=== PATIENT | male | born 1965 | race African-American/Black ===

== ENCOUNTER 2017-12-19 15:39 | Emergency (ER) | payer SELFPAY ==
[2017-12-19 16:31] LABS: Absolute Lymphocytes (CBC) 1.6 K/uL (0.7-4.9); Absolute Neutrophil 5.6 K/uL (1.8-8.0); Hematocrit 43.7 % (39.6-49.0); Lymphocytes % 18.7 % (15.3-44.8); MCH 27.4 pg (27.0-35.0); MCV 81.5 fL (80-100); MPV 9.5 fL (7.6-11.3); Monocytes % 12.2 % (3.3-12.3); RBC Red Blood Cell Count 5.36 M/uL (4.33-5.43)
[2017-12-19 17:01] LABS: Potassium 2.8 mEq/L (3.6-5.0)
[2017-12-19] MEDS ORDERED: POTASSIUM 25 MEQ EFFERV TAB ONE (17:19)
--- NOTE | 2017-12-19 17:27 | ER ---
Nurse's Notes [facility] Name: Lencho Menon Age: 52 yrs Sex: Male : 1965 Arrival Date: 12/19/2017 Time: 15:42 Bed 14 Private MD: Out, [facility] Diagnosis: Hypokalemia Presentation: 12/19 15:43 Presenting complaint: Patient states: i had blood work done yesterday and my potassium tw2 is low [facility] Transition of care: patient was not received from another setting of care. Onset of symptoms was December 19, 2017. Risk Assessment: Do you want to hurt yourself or someone else? Patient reports no desire to harm self or others. Initial Sepsis Screen: Does the patient meet any 2 criteria? No. Patient's initial sepsis screen is negative. Does the patient have a suspected source of infection? No. Patient's initial sepsis screen is negative. Care prior to arrival: None. 15:43 Method Of Arrival: Ambulatory tw2 15:43 Acuity: BENY 3 tw2 Historical: - Allergies: 15:45 No Known Drug Allergies; tw2 - Home Meds: 15:45 potassium chloride 20 mEq Oral TbER 1 tab once daily [Active]; hydralazine 25 mg Oral tw2 tab 1 tab 2 times per day [Active]; labetalol 200 mg Oral tab 1 tab three times a day [Active]; nifedipine 90 mg Oral TbER 1 tab once daily [Active]; triamterene-hydrochlorothiazid 37.5-25 mg Oral tab 1 tab once daily [Active]; - PMHx: 15:45 Hypertension; tw2 - PSHx: 15:45 None; tw2 - Immunization history:: Adult Immunizations up to date. - Social history:: Smoking status: Patient/guardian denies using tobacco. - Ebola Screening: : Patient denies travel to an Ebola-affected area in the 21 days before illness onset. Screenin:38 Abuse screen: Denies threats or abuse. Denies injuries from another. Nutritional ch screening: No deficits noted. Tuberculosis screening: No symptoms or risk factors identified. Fall Risk None identified. Assessment: 16:38 General: Appears in no apparent distress. comfortable, Behavior is calm, cooperative, ch appropriate for age. Pain: Denies pain. Neuro: No deficits noted. Cardiovascular: Denies chest pain, fatigue, lightheadedness, palpitations, shortness of breath, Capillary refill < 3 seconds in bilateral fingers toes Clubbing of nail beds is absent. Respiratory: Airway is patent Respiratory effort is even, unlabored, Breath sounds are clear bilaterally. GI: No signs and/or symptoms were reported involving the gastrointestinal system. : No signs and/or symptoms were reported regarding the genitourinary system. Derm: Skin is normal, black. Musculoskeletal: No signs and/or symptoms reported regarding the musculoskeletal system. Circulation, motion, and sensation intact. 17:45 Reassessment: Patient appears in no apparent distress at this time. Patient and/or ch family updated on plan of care and expected duration. Pain level reassessed. Patient is alert, oriented x 3, equal unlabored respirations, skin warm/dry/pink. i verify with erp that pt is to be discharged home, no further potassium to be given, no repeat labs to be drawn. erp states yes, discharge pt. Vital Signs: 15:45 BP 181 / 94; Pulse 76; Resp 17; Temp 98.2(O); Pulse Ox 98% on R/A; Weight 129.27 kg tw2 (R); Height 5 ft. 11 in. (180.34 cm); Pain 0/10; 16:38 BP 170 / 80; Pulse 65; Resp 18; Temp 98.3; Pulse Ox 99% on R/A; Pain 0/10; ch 17:00 BP 146 / 75; Pulse 68; Pulse Ox 99% on R/A; ch 17:45 BP 135 / 86; Pulse 71; Resp 16; Temp 98.2; Pulse Ox 99% on R/A; Pain 0/10; ch 15:45 Body Mass Index 39.75 (129.27 kg, 180.34 cm) tw2 ED Course: 15:42 Patient arrived in ED. mr 15:42 Out, of Town is Private Physician. mr 15:44 Triage completed. tw2 15:44 Arm band placed on. tw2 15:52 Neno Fall MD is Attending Physician. gs 16:38 Rossi Alonso, STEPHANE is Primary Nurse. ch 16:38 Patient has correct armband on for positive identification. Placed in gown. Bed in low ch position. Call light in reach. Side rails up X 1. Pulse ox on. NIBP on. 16:38 No provider procedures requiring assistance completed. Inserted saline lock: 18 gauge ch in left antecubital area, using aseptic technique. Blood collected. 18:00 IV discontinued, intact, bleeding controlled, No redness/swelling at site. Pressure ch dressing applied. Administered Medications: 17:23 Drug: Potassium Effervescent Tablet 50 mEq Route: PO; 18:00 Follow up: Response: No adverse reaction Outcome: 17:25 Discharge ordered by . 18:00 Discharged to home ambulatory. 18:00 Condition: stable 18:00 Discharge instructions given to patient, family, Instructed on discharge instructions, follow up and referral plans. medication usage, Demonstrated understanding of instructions, follow-up care, medications. 18:11 Patient left the ED. Signatures: Rossi Alonso, Carline Rogers RN, ch, Tara, RN RN tw2 Neno Fall MD MD
--- NOTE | 2017-12-19 17:27 | EDPHYS ---
Physician Documentation [facility] Name: Lencho Menon Age: 52 yrs Sex: Male : 1965 Arrival Date: 12/19/2017 Time: 15:42 Bed 14 Private MD: Out, [facility] ED Physician Neno Fall HPI: 12/19 17:16 This 52 yrs old Black Male presents to ER via Ambulatory with complaints of Abnormal gs Lab Results. 17:16 HAS LOW POTASSIUM SENT BY PCP, ASYMPTOMATIC. Onset: The symptoms/episode began/occurred gs 5 day(s) ago. Severity of symptoms: At their worst the symptoms were moderate in the emergency department the symptoms are unchanged. It is unknown whether or not the patient has had similar symptoms in the past. Historical: - Allergies: 15:45 No Known Drug Allergies; tw2 - Home Meds: 15:45 potassium chloride 20 mEq Oral TbER 1 tab once daily [Active]; hydralazine 25 mg Oral tw2 tab 1 tab 2 times per day [Active]; labetalol 200 mg Oral tab 1 tab three times a day [Active]; nifedipine 90 mg Oral TbER 1 tab once daily [Active]; triamterene-hydrochlorothiazid 37.5-25 mg Oral tab 1 tab once daily [Active]; - PMHx: 15:45 Hypertension; tw2 - PSHx: 15:45 None; tw2 - Immunization history:: Adult Immunizations up to date. - Social history:: Smoking status: Patient/guardian denies using tobacco. - Ebola Screening: : Patient denies travel to an Ebola-affected area in the 21 days before illness onset. ROS: 17:16 All other systems are negative. gs Exam: 17:16 Head/Face: Normocephalic, atraumatic. Eyes: Pupils equal round and reactive to light, gs extra-ocular motions intact. Lids and lashes normal. Conjunctiva and sclera are non-icteric and not injected. Cornea within normal limits. Periorbital areas with no swelling, redness, or edema. ENT: Nares patent. No nasal discharge, no septal abnormalities noted. Tympanic membranes are normal and external auditory canals are clear. Oropharynx with no redness, swelling, or masses, exudates, or evidence of obstruction, uvula midline. Mucous membranes moist. Neck: Trachea midline, no thyromegaly or masses palpated, and no cervical lymphadenopathy. Supple, full range of motion without nuchal rigidity, or vertebral point tenderness. No Meningismus. Chest/axilla: Normal chest wall appearance and motion. Nontender with no deformity. No lesions are appreciated. Cardiovascular: Regular rate and rhythm with a normal S1 and S2. No gallops, murmurs, or rubs. Normal PMI, no JVD. No pulse deficits. Respiratory: Lungs have equal breath sounds bilaterally, clear to auscultation and percussion. No rales, rhonchi or wheezes noted. No increased work of breathing, no retractions or nasal flaring. Abdomen/GI: Soft, non-tender, with normal bowel sounds. No distension or tympany. No guarding or rebound. No evidence of tenderness throughout. Back: No spinal tenderness. No costovertebral tenderness. Full range of motion. Skin: Warm, dry with normal turgor. Normal color with no rashes, no lesions, and no evidence of cellulitis. MS/ Extremity: Pulses equal, no cyanosis. Neurovascular intact. Full, normal range of motion. Neuro: Awake and alert, GCS 15, oriented to person, place, time, and situation. Cranial nerves II-XII grossly intact. Motor strength 5/5 in all extremities. Sensory grossly intact. Cerebellar exam normal. Normal gait. 17:16 Constitutional: The patient appears alert, awake. Vital Signs: 15:45 BP 181 / 94; Pulse 76; Resp 17; Temp 98.2(O); Pulse Ox 98% on R/A; Weight 129.27 kg tw2 (R); Height 5 ft. 11 in. (180.34 cm); Pain 0/10; 16:38 BP 170 / 80; Pulse 65; Resp 18; Temp 98.3; Pulse Ox 99% on R/A; Pain 0/10; ch 17:00 BP 146 / 75; Pulse 68; Pulse Ox 99% on R/A; ch 17:45 BP 135 / 86; Pulse 71; Resp 16; Temp 98.2; Pulse Ox 99% on R/A; Pain 0/10; ch 15:45 Body Mass Index 39.75 (129.27 kg, 180.34 cm) tw2 MDM: 16:30 Patient medically screened. 17:16 Data reviewed: vital signs, nurses notes. 12/19 15:52 Order name: CBC with Diff; Complete Time: 17:16 12/19 15:52 Order name: Basic Metabolic Panel; Complete Time: 17:16 12/19 16:32 Order name: Magnesium; Complete Time: 17:16 Administered Medications: 17:23 Drug: Potassium Effervescent Tablet 50 mEq Route: PO; 18:00 Follow up: Response: No adverse reaction Disposition: 12/19/17 17:25 Discharged to Home. Impression: Hypokalemia. - Condition is Stable. - Discharge Instructions: Hypokalemia. - Prescriptions for Potassium Chloride 20 meq Oral Packet - take 2 packets by ORAL route 2 times per day for 3 days 1 packet in 6 (six) ounces of water or juice; Take after meal; 12 packet. - Medication Reconciliation Form, Thank You Letter, Antibiotic Education, Prescription Opioid Use form. - Follow up: Private Physician; When: 2 - 3 days; Reason: Re-evaluation by your physician. Signatures: Dispatcher [employer] Rossi Chaudhry RN RN Denae Patterson RN RN 2 Neno Fall MD MD Corrections: (The following items were deleted from the chart) 18:11 17:25 12/19/2017 17:25 Discharged to Home. Impression: Hypokalemia. Condition is ch Stable. Forms are Medication Reconciliation Form, Thank You Letter, Antibiotic Education, Prescription Opioid Use. Follow up: Private Physician; When: 2 - 3 days; Reason: Re-evaluation by your physician.
== END 2017-12-19 18:11 | disposition home or self-care (01) ==
LOC: ER 15:39
DX: E87.6 Hypokalemia (principal); I10 Essential (primary) hypertension
CPT/HCPCS: 36415; 80048; 83735; 85025; 99284

== ENCOUNTER 2018-02-26 14:19 | Emergency (ER) | payer OTHER, SELFPAY ==
[2018-02-26] MEDS ORDERED: HYDROCODONE/APAP 7.5/325 MG TAB ONE (15:52)
[2018-02-26] MEDS ORDERED: IBUPROFEN 400 MG TAB ONE (15:56)
--- NOTE | 2018-02-26 16:41 | EDPHYS ---
Physician Documentation [facility] Name: Lencho Menon Age: 52 yrs Sex: Male : 1965 Arrival Date: 02/26/2018 Time: 14:21 Bed 28 Private MD: ED Physician Akira Bender HPI: 02/26 15:50 This 52 yrs old Black Male presents to ER via Ambulatory with complaints of Foot Pain. cp 15:50 The patient presents with pain, that is acute, swelling, tenderness. The complaints cp affect the metatarsalphalangeal joint left great toe. Context: resulted from an unknown cause, the patient can fully bear weight, the patient is able to ambulate, with moderate difficulty. Onset: The symptoms/episode began/occurred 2 day(s) ago. Associated signs and symptoms: Pertinent positives: swelling, tenderness, Pertinent negatives calf tenderness, fever, warmth, injury. Treatment prior to arrival includes: no previous treatment. Historical: - Allergies: 14:25 No Known Drug Allergies; hj - Home Meds: 14:25 hydralazine 25 mg Oral tab 1 tab 2 times per day [Active]; labetalol 200 mg Oral tab 1 hj tab three times a day [Active]; nifedipine 90 mg Oral TbER 1 tab once daily [Active]; potassium chloride 20 mEq Oral TbER 1 tab once daily [Active]; triamterene-hydrochlorothiazid 37.5-25 mg Oral tab 1 tab once daily [Active]; - PMHx: 14:25 Hypertension; hj - PSHx: 14:25 None; hj - Immunization history:: Adult Immunizations up to date. - Social history:: Smoking status: Patient/guardian denies using tobacco, Patient uses alcohol, occasionally. - Ebola Screening: : Patient negative for fever greater than or equal to 101.5 degrees Fahrenheit, and additional compatible Ebola Virus Disease symptoms Patient denies exposure to infectious person Patient denies travel to an Ebola-affected area in the 21 days before illness onset. ROS: 16:00 Constitutional: Negative for body aches, chills, fever, poor PO intake. cp 16:00 Eyes: Negative for injury, pain, redness, and discharge. cp 16:00 ENT: Negative for drainage from ear(s), ear pain, sore throat, difficulty swallowing, difficulty handling secretions. 16:00 Cardiovascular: Negative for chest pain, edema, palpitations. 16:00 Respiratory: Negative for cough, shortness of breath, wheezing. 16:00 Abdomen/GI: Negative for abdominal pain, nausea, vomiting, and diarrhea. 16:00 MS/extremity: Positive for pain, swelling, tenderness, of the left metatarsalphalangeal joint of left great toe, Negative for injury or acute deformity. 16:00 Skin: Negative for abscesses, cellulitis. 16:00 All other systems are negative. Exam: 16:05 Constitutional: The patient appears in no acute distress, alert, non-toxic, well cp developed, well nourished, uncomfortable. 16:05 Head/Face: Normocephalic, atraumatic. cp 16:05 Eyes: Periorbital structures: appear normal, Conjunctiva: normal, no exudate, no cp injection, Lids and lashes: appear normal, bilaterally. 16:05 ENT: External ear(s): are unremarkable, Nose: is normal, Mouth: Lips: moist, Oral mucosa: moist, Posterior pharynx: is normal, airway is patent, no erythema, no exudate. 16:05 Chest/axilla: Inspection: normal, Palpation: is normal, no crepitus, no tenderness. 16:05 Cardiovascular: Rate: normal, Rhythm: regular. 16:05 Respiratory: the patient does not display signs of respiratory distress, Respirations: cp normal, no use of accessory muscles, no retractions, no splinting, no tachypnea. 16:05 Abdomen/GI: Exam negative for discomfort, distension, guarding, Inspection: abdomen appears normal. 16:05 Musculoskeletal/extremity: Extremities: grossly normal except: noted in the metacarpal phalangeal joint of left great toe: pain, swelling, tenderness, There is no evidence of deformity, injury, Pulses: noted to be 2+ in the left dorsalis pedis artery, Calf tenderness, is absent, Sensation intact. 16:05 Skin: cellulitis, is not appreciated, no rash present. Vital Signs: 14:26 BP 192 / 86; Pulse 74; Resp 18; Temp 97.9(O); Pulse Ox 100% on R/A; Weight 127.01 kg; hj Height 5 ft. 11 in. (180.34 cm); Pain 9/10; 16:16 BP 168 / 94; Pulse 89; Resp 18; Pulse Ox 98% on R/A; Pain 5/10; mg2 14:26 Body Mass Index 39.05 (127.01 kg, 180.34 cm) MDM: 15:18 Patient medically screened. cp 16:00 Differential diagnosis: closed fracture, cellulitis, abscess, gout. cp 16:40 Data reviewed: vital signs, nurses notes, radiologic studies, plain films, and as a cp result, I will discharge patient. 16:40 Counseling: I had a detailed discussion with the patient and/or guardian regarding: the cp historical points, exam findings, and any diagnostic results supporting the discharge/admit diagnosis, radiology results, the need for outpatient follow up, a family practitioner. Response to treatment: the patient's symptoms have mildly improved after treatment. 02/26 15:45 Order name: XRAY Foot LEFT 3 View cp Administered Medications: 15:53 Not Given (Patient Refused): Hydrocodone-Acetaminophen (7.5 mg-325 mg) 1 tabs PO once mg2 15:54 Drug: Motrin 800 mg Route: PO; mg2 16:56 Follow up: Response: No adverse reaction; Marked relief of symptoms mg2 Disposition: 02/27 07:25 Co-signature as Attending Physician, Akira Bender MD I agree with the assessment and [facility] plan of care. Disposition: 02/26/18 16:40 Discharged to Home. Impression: Pain in left toe(s) - Left Big Toe. - Condition is Stable. - Discharge Instructions: Gout. - Prescriptions for Colchicine- Probenecid 0.5-500 mg Oral Tablet - take 1 tablet by ORAL route every 1 hour up to 3 hours; 3 tablet. Tramadol 50 mg Oral Tablet - take 1 tablet by ORAL route every 8 hours as needed; 15 tablet. - Medication Reconciliation Form, Thank You Letter, Antibiotic Education, Prescription Opioid Use form. - Follow up: Private Physician; When: 2 - 3 days; Reason: Recheck today's complaints. - Problem is new. - Symptoms are unchanged. Signatures: Dispatcher [employer] Akira Torres MD MD cha Joaquin, Henry RN RN Akira Bustillos PA PA cp Gardose, Michele RN RN mg2 Corrections: (The following items were deleted from the chart) 02/26 16:24 02/25 16:05 Constitutional: The patient appears in no acute distress, alert, awake, cp non-toxic, well developed, well nourished, uncomfortable, cp 02/26 16:24 02/25 16:05 Head/Face: Normocephalic, atraumatic. cp cp 02/26 16:58 16:40 02/26/2018 16:40 Discharged to Home. Impression: Pain in left toe(s) - Left Big mg2 Toe. Condition is Stable. Forms are Medication Reconciliation Form, Thank You Letter, Antibiotic Education, Prescription Opioid Use. Follow up: Private Physician; When: 2 - 3 days; Reason: Recheck today's complaints. Problem is new. Symptoms are unchanged. cp
--- NOTE | 2018-02-26 16:41 | ER ---
Nurse's Notes [facility] Name: Lencho Menon Age: 52 yrs Sex: Male : 1965 Arrival Date: 02/26/2018 Time: 14:21 Bed 28 Private MD: Diagnosis: Pain in left toe(s)-Left Big Toe Presentation: 02/26 14:23 Presenting complaint: Patient states: my L toe started hurting started yesterday, i hj think i have gout; denies trauma to the area;. Transition of care: patient was not received from another setting of care. Onset of symptoms was February 26, 2018. Risk Assessment: Do you want to hurt yourself or someone else? Patient reports no desire to harm self or others. Initial Sepsis Screen: Does the patient meet any 2 criteria? No. Patient's initial sepsis screen is negative. Does the patient have a suspected source of infection? No. Patient's initial sepsis screen is negative. Care prior to arrival: None. 14:23 Method Of Arrival: Ambulatory 14:23 Acuity: BENY 4 hj 14:23 Acuity: BENY 4 hj Triage Assessment: 14:26 General: Appears in no apparent distress. uncomfortable, Behavior is calm, cooperative, hj appropriate for age. Pain: Complains of pain in left first toe. Historical: - Allergies: 14:25 No Known Drug Allergies; hj - Home Meds: 14:25 hydralazine 25 mg Oral tab 1 tab 2 times per day [Active]; labetalol 200 mg Oral tab 1 hj tab three times a day [Active]; nifedipine 90 mg Oral TbER 1 tab once daily [Active]; potassium chloride 20 mEq Oral TbER 1 tab once daily [Active]; triamterene-hydrochlorothiazid 37.5-25 mg Oral tab 1 tab once daily [Active]; - PMHx: 14:25 Hypertension; hj - PSHx: 14:25 None; hj - Immunization history:: Adult Immunizations up to date. - Social history:: Smoking status: Patient/guardian denies using tobacco, Patient uses alcohol, occasionally. - Ebola Screening: : Patient negative for fever greater than or equal to 101.5 degrees Fahrenheit, and additional compatible Ebola Virus Disease symptoms Patient denies exposure to infectious person Patient denies travel to an Ebola-affected area in the 21 days before illness onset. Screenin:26 Abuse screen: Denies threats or abuse. Denies injuries from another. Nutritional hj screening: No deficits noted. Tuberculosis screening: No symptoms or risk factors identified. Fall Risk None identified. Assessment: 15:45 General: Appears in no apparent distress. comfortable, Behavior is calm, cooperative. mg2 Pain: Complains of pain in left foot and left first toe Pain does not radiate. Pain currently is 8 out of 10 on a pain scale. Quality of pain is described as aching, Pain began 2-3 days ago. Is intermittent, Alleviated by rest, Aggravated by repositioning, touch. Neuro: Level of Consciousness is awake, alert, obeys commands, Oriented to person, place, time, situation. Cardiovascular: Capillary refill < 3 seconds Patient's skin is warm and dry. Respiratory: Airway is patent Respiratory effort is even, unlabored, Respiratory pattern is regular, symmetrical. GI: No signs and/or symptoms were reported involving the gastrointestinal system. : No signs and/or symptoms were reported regarding the genitourinary system. EENT: No signs and/or symptoms were reported regarding the EENT system. Derm: Skin is intact, Skin is normal. Musculoskeletal: Circulation, motion, and sensation intact. Swelling present in left foot and left first toe. Vital Signs: 14:26 BP 192 / 86; Pulse 74; Resp 18; Temp 97.9(O); Pulse Ox 100% on R/A; Weight 127.01 kg; hj Height 5 ft. 11 in. (180.34 cm); Pain 9/10; 16:16 BP 168 / 94; Pulse 89; Resp 18; Pulse Ox 98% on R/A; Pain 5/10; mg2 14:26 Body Mass Index 39.05 (127.01 kg, 180.34 cm) ED Course: 14:21 Patient arrived in ED. rg4 14:25 Triage completed. 14:26 Arm band placed on left wrist. hj 14:26 Patient has correct armband on for positive identification. Bed in low position. Call light in reach. Side rails up X 1. 15:18 Akira Bustillos PA is PHCP. cp 15:18 Akira Bender MD is Attending Physician. cp 15:41 Mert Monson RN is Primary Nurse. mg2 16:29 X-ray completed. Portable x-ray completed in exam room. Patient tolerated procedure bb2 well. 16:31 XRAY Foot LEFT 3 View In Process Unspecified. EDMS 16:57 No provider procedures requiring assistance completed. Patient did not have IV access mg2 during this emergency room visit. Administered Medications: 15:53 Not Given (Patient Refused): Hydrocodone-Acetaminophen (7.5 mg-325 mg) 1 tabs PO once mg2 15:54 Drug: Motrin 800 mg Route: PO; mg2 16:56 Follow up: Response: No adverse reaction; Marked relief of symptoms mg2 Outcome: 16:40 Discharge ordered by MD. allan 16:57 Discharged to home ambulatory, with family. mg2 16:57 Condition: good 16:57 Discharge instructions given to patient, family, Instructed on discharge instructions, follow up and referral plans. medication usage, Demonstrated understanding of instructions, follow-up care, medications, Prescriptions given X 2. 16:58 Patient left the ED. mg2 Signatures: Dispatcher [employer] EDMS Rafael Marquez RN RN hj Akira Bustillos PA PA cp Garcia, Rubi rg4 Marge Serrano bb2 Mert Monson RN RN mg2 Corrections: (The following items were deleted from the chart) 14:28 14:26 Pulse 74bpm; Resp 18bpm; Pulse Ox 100% RA; Temp 97.9F Oral; 127.01 kg; Height 5 hj ft. 11 in.; BMI: 39.0; Pain 9/10; hj
--- NOTE | 2018-02-26 17:30 | RAD REPORT ---
EXAM DESCRIPTION: RAD - Foot Left 3 View - 02/26/2018 4:33 pm CLINICAL HISTORY: Pain left first toe COMPARISON: None. FINDINGS: No fracture, dislocation or periosteal reaction. No acute or destructive bony process. Th e first IP joint space in the first MTP joint space are normal. No soft tissue calcifications. Remainder the foot shows no acute finding. IMPRESSION: No abnormality to explain first toe pain.
== END 2018-02-26 16:58 | disposition home or self-care (01) ==
LOC: ER 14:19
DX: M79.675 Pain in left toe(s) (principal); I10 Essential (primary) hypertension
CPT/HCPCS: 99283

== ENCOUNTER 2022-03-13 20:41 | Emergency (ER) | payer BC, SELFPAY ==
--- OUTSIDE RECORDS SUMMARY | 2022-03-13 20:44 | XMS REPORT | Continuity of Care Document ---
:1965 Author Organization [facility] t Address [address] [place] [id number] Care Team Providers Name Role Phone BRAYD Attending Clinician Unavailable BRADY Admitting Clinician Unavailable Problems This patient has no known problems. Allergies, Adverse Reactions, Alerts This patient has no known allergies or adverse reactions. Medications This patient has no known medications. Procedures This patient has no known procedures. Encounters Start End Encounter Admission Attending Care Care Encounter Source Date/Time Date/Time Type Type Clinicians Facility Department ID 2022-02-08 2022-02-08 Outpatient FISH [facility] [address] 11:29:00 11:29:00 _ANN 07 [facility] h Program Results Test Description Test Time Test Comments Results Result Comments Source Comprehensive Metabolic Panel 2019-04-05 22:42:14 Test Item Value Reference Range Interpretation Comme nts Sodium Level (test code = Sodium Level) 141.0 mmol/L 135.0-145.0 Potassium Level (test code = Potassium Level) 3.6 mmol/L 3.5-5.1 Chloride Level (test code = Chloride Level) 102 mmol/L 98-105 CO2 (test code = CO2) 28 mmol/L 22-29 Anion Gap (test code = Anion Gap) 11 mmol/L 7-16 BUN (test code = BUN) 23.50 mg/dL 6.00-20.00 H Creatinine Level (test code = Creatinine Level) 1.60 mg/dL 0.70-1 .20 H BUN/Creat Ratio (test code = BUN/Creat Ratio) 15 N Glucose Level (test code = Glucose Level) 86 mg/dL 70-115 Calcium Level (test code = Calcium Level) 9.2 mg/dL 8.3-10.5 Alk Phos (test code = Alk Phos) 87 U/L 40-129 Bilirubin Total (test code = Bilirubin Total) 0.8 mg/dL 0.1-0.9 Albumin Level (test code = Albumin Level) 4.0 g/dL 3.5-5.2 Protein Total (test code = Protein Total) 6.9 g/dL 6.4-8.3 ALT (test code = ALT) 17 U/L 1-41 AST (test code = AST) 17 U/L 1-40 Globulin (test code = Globulin) 2.9 g/dL 2.9-3.1 A/G Ratio (test code = A/G Ratio) 1.4 ratio N Lipid [id number] 22:42:14 Test Item Value Reference Range Interpretation Comments Cholesterol Total 176 mg/dL 0-200 RISK OF HE ART (test code = DISEASEPublishe d by Cholesterol Total) [place] [employer] Tara lyte Optimal Borderl ine Increased RiskC HOL <200 200-239 >240TRI G <150 150-199 >200HDL Male >60 <40HDL Fema le >60 <50LDL <100 130 -159 >160LDL Near [facility] is 100-129 Triglycerides (test 105 mg/dL 9-200 code = Triglycerides) HDL (test code = HDL) 39 mg/dL 40-60 L LDL (test code = LDL) 116 mg/dL 0-130 The eq uation being used in this calcula tion is LDL = (Chol - H DL) - (Trig / 5) VLDL (test code = 21 mg/dL 5-40 The equati on being used VLDL) in this calcula tion is VLDL = Trig / 5 Chol/HDL (test code = 4.5 ratio 0.0-5.0 Chol/HDL) LDL/HDL Ratio (test 3 N The equa tion being used code = LDL/HDL Ratio) in thi s calculation is LDL/HDL Ratio=L DL Calc/HDL Chol Comprehensive Metabolic [id number] 22:42:14 Test Item Value Reference Range Interpretation Comments Sodium Level (test 141.0 mmol/L 135.0-145.0 code = Sodium Level) Potassium Level 3.6 mmol/L 3.5-5.1 (test code = Potassium Level) Chloride Level (test 102 mmol/L 98-105 code = Chloride Level) CO2 (test code = 28 mmol/L 22-29 CO2) Anion Gap (test code 11 mmol/L 7-16 = Anion Gap) BUN (test code = 23.50 mg/dL 6.00-20.00 H BUN) Creatinine Level 1.60 mg/dL 0.70-1.20 H (test code = Creatinine Level) BUN/Creat Ratio 15 N (test code = BUN/Creat Ratio) Glucose Level (test 86 mg/dL 70-115 code = Glucose Level) Calcium Level (test 9.2 mg/dL 8.3-10.5 code = Calcium Level) Alk Phos (test code 87 U/L 40-129 = Alk Phos) Bilirubin Total 0.8 mg/dL 0.1-0.9 (test code = Bilirubin Total) Albumin Level (test 4.0 g/dL 3.5-5.2 code = Albumin Level) Protein Total (test 6.9 g/dL 6.4-8.3 code = Protein Total) ALT (test code = 17 U/L 1-41 ALT) AST (test code = 17 U/L 1-40 AST) Globulin (test code 2.9 g/dL 2.9-3.1 = Globulin) A/G Ratio (test code 1.4 ratio N = A/G Ratio) eGFR AA (test code = 55 mL/min/1.73 N eGFR (estimated eGFR AA) m2 Glomerular Filtration Rate ) is an estimated va lue, calculated from the patient's serum creatinine usin g the MDRD equation. It is NOT the patient 's actual GFR. The eGFR provides a more clinically usef ul measure of kidn ey disease than se rum creatinine alone.This calculation katia es sex and race in to account, if the information is provided. If th e race is not provided, and t he patient is -Aziza n, multiply by 1.2 12. If sex is not provided, and t he patient is fema le, multiply by 0.7 42. Results for pat ients <18 years of ag e have not been validated by th e MDRD study and should be interpreted wit h caution. eGFR R esult Interpretation: eGFR > or = 60 is in the Normal RangeeGF R < 60 may mean kid padma diseaseeGFR < 1 5 may mean kidney failure Rang es recommended by the National Kidney Foundation, http://nkdep.ni h.gov Comprehensive Metabolic [id number] 22:42:14 Test Item Value Reference Range Interpretation Comments Sodium Level (test 141.0 mmol/L 135.0-145.0 code = Sodium Level) Potassium Level 3.6 mmol/L 3.5-5.1 (test code = Potassium Level) Chloride Level (test 102 mmol/L 98-105 code = Chloride Level) CO2 (test code = 28 mmol/L 22-29 CO2) Anion Gap (test code 11 mmol/L 7-16 = Anion Gap) BUN (test code = 23.50 mg/dL 6.00-20.00 H BUN) Creatinine Level 1.60 mg/dL 0.70-1.20 H (test code = Creatinine Level) BUN/Creat Ratio 15 N (test code = BUN/Creat Ratio) Glucose Level (test 86 mg/dL 70-115 code = Glucose Level) Calcium Level (test 9.2 mg/dL 8.3-10.5 code = Calcium Level) Alk Phos (test code 87 U/L 40-129 = Alk Phos) Bilirubin Total 0.8 mg/dL 0.1-0.9 (test code = Bilirubin Total) Albumin Level (test 4.0 g/dL 3.5-5.2 code = Albumin Level) Protein Total (test 6.9 g/dL 6.4-8.3 code = Protein Total) ALT (test code = 17 U/L 1-41 ALT) AST (test code = 17 U/L 1-40 AST) Globulin (test code 2.9 g/dL 2.9-3.1 = Globulin) A/G Ratio (test code 1.4 ratio N = A/G Ratio) eGFR AA (test code = 55 mL/min/1.73 N eGFR (estimated eGFR AA) m2 Glomerular Filtration Rate ) is an estimated va lue, calculated from the patient's serum creatinine usin g the MDRD equation. It is NOT the patient 's actual GFR. The eGFR provides a more clinically usef ul measure of kidn ey disease than se rum creatinine alone.This calculation katia es sex and race in to account, if the information is provided. If th e race is not provided, and t he patient is -Aziza n, multiply by 1.2 12. If sex is not provided, and t he patient is fema le, multiply by 0.7 42. Results for pat ients <18 years of ag e have not been validated by [facility] MDRD study and should be interpreted wit h caution. eGFR R esult Interpretation: eGFR > or = 60 is in the Normal RangeeGF R < 60 may mean kid padma diseaseeGFR < 1 5 may mean kidney failure Rang es recommended by the National Kidney Foundation, http://nkdep.ni h.gov eGFR Non-AA (test 45.62 N eGFR (aamir mated code = eGFR Non-AA) mL/min/1.73 m2 Glomer ular Filtration Rate ) is an estimated va lue, calculated from the patient's serum creatinine usin g the MDRD equation. It is NOT the patient 's actual GFR. The eGFR provides a more clinically usef ul measure of kidn ey disease than se rum creatinine alone.This calculation katia es sex and race in to account, if the information is provided. If th e race is not provided, and t he patient is -Aziza n, multiply by 1.2 12. If sex is not provided, and t he patient is fema le, multiply by 0.7 42. Results for pat ients <18 years of ag e have not been validated by [facility] MDRD study and should be interpreted wit h caution. eGFR R esult Interpretation: eGFR > or = 60 is in the Normal RangeeGF R < 60 may mean kid padma diseaseeGFR < 1 5 may mean kidney failure Rang es recommended by the National Kidney Foundation, http://nkdep.ni h.gov Manual [id number] 22:11:35 Test Item Value Reference Range Interpretation Comments Segs Man (test code = Segs 55.0 % 36.0-70.0 Man) Band Man (test code = Band 1.0 % 0.0-6.0 Man) Lymph Man (test code = Lymph 24.0 % 12.0-44.0 Man) Monocyte Man (test code = 16.0 % 0.0-11.0 H Monocyte Man) Eos Man (test code = Eos Man) 2.0 % 0.0-7.0 Basophil Man (test code = 2.0 0.0-2.0 Basophil Man) Neut Man Abs (test code = 4.5 x10 1.6-7.4 Neut Man Abs) Lymph Man Abs (test code = 1.9 x10 0.5-4.6 Lymph Man Abs) [place] Man Abs (test code = 1.3 x10 0.0-1.2 H [place] Man Abs) Eos Man Abs (test code = Eos 0.16 x10 0.00-0.74 Man Abs) Baso Man Abs (test code = 0.16 x10 0.00-0.21 Baso Man Abs) RBC Morph (test code = RBC Normal Normal Morph) Plt Estimation (test code = Normal Normal Plt Estimation) Platelet Morphology (test Large platelets Normal A code = Platelet Morphology) Complete Blood Count with [id number] 21:39:36 Test Item Value Reference Range Interpretation Comments WBC (test code = WBC) 8.0 x10 4.4-10.5 RBC (test code = RBC) 5.34 x10 4.10-5.70 Hgb (test code = Hgb) 14.3 g/dL 13.4-17.4 Hct (test code = Hct) 44.7 % 38.7-52.0 MCV (test code = MCV) 83.70 fL 80.00-100.00 MCHC (test code = 32.00 g/dL 32.00-37.50 MCHC) MCH (test code = MCH) 26.8 pg 27.0-32.5 L RDW CV (test code = 13.6 % 11.5-14.5 RDW CV) Platelets (test code = 227.0 x10 140.0-440.0 Platelets) MPV (test code = MPV) 11.9 fL N Slide Review (test Manual Auto A Result cr eated by code = Slide Review) GL_SJM_ SLIDE_REV_AUTO [id number] nRBC (test code = 0 N nRBC) NRBC Abs (test code = 0.00 x10 N NRBC Abs) Pos Diff XN (test code A N = Pos Diff XN) IPF (test code = IPF) 0 % N IG [id number] 21:39:36 Test Item Value Reference Range Interpretation Comments IG (test code = IG) 0.3 % 0.0-5.0 IG Abs (test code = IG Abs) 0 x10 N
[2022-03-13 21:46] LABS: Absolute Lymphocytes (CBC) 1.3 K/uL (0.7-4.9); Hematocrit 48.2 % (39.6-49.0); Lymphocytes % 11.6 % (15.3-44.8); MCV 80.4 fL (80-100); MPV 8.3 fL (7.6-11.3)
[2022-03-13 22:06] LABS: Troponin High Sensitivity 28.9 pg/mL (<58.9)
[2022-03-13] MEDS ORDERED: DIAZEPAM 10 MG/2 ML INJ SYRINGE ONE (22:11)
[2022-03-13] MEDS ORDERED: LEVETIRACETAM 500 MG/5 ML VIAL IV ONE (22:12)
[2022-03-13] MEDS ORDERED: NA CHLORIDE 0.9% 100 ML ONE (22:13)
[2022-03-13] MEDS ORDERED: Nicardipine/NS 25 MG/250 ML KIT IV ONE (22:13)
--- NOTE | 2022-03-13 22:25 | RAD REPORT ---
EXAM DESCRIPTION: RAD - Chest Single View - 03/13/2022 10:18 pm CLINICAL HISTORY: CHEST PAIN Chest pain. COMPARISON: Chest Pa And Lat (2 Views) dated 10/02/2017; CHEST SINGLE VIEW dated 04/11/2015 FINDINGS: Portable technique limits examination quality. Mild to moderate pulmonary edema is seen. The heart is moderately enlarged in size. No displaced frac tures. IMPRESSION: Mild CHF.
[2022-03-13] MEDS ORDERED: FUROSEMIDE 20 MG/ 2ML VIAL ONE (22:50)
[2022-03-14] MEDS ORDERED: KCL 20 MEQ/100 mL IVPB 100 ML IV ONE (00:09)
[2022-03-14] MEDS ORDERED: FOLIC ACID 5 MG/ML VIAL ONE (00:11)
[2022-03-14] MEDS ORDERED: NA CHLORIDE 0.9% 100 ML ONE (00:12)
[2022-03-14] MEDS ORDERED: NA CHLORIDE 0.9% 50 ML ONE (00:12)
--- NOTE | 2022-03-14 00:37 | EDPHYS ---
Physician Documentation [facility] Name: Lencho Menon Age: 56 yrs Sex: Male : 1965 Arrival Date: 03/13/2022 Time: 20:41 Bed 27 Private MD: ED Physician Brock Nguyen HPI: 03/13 22:39 This 56 yrs old Black Male presents to ER via Ambulatory with complaints of Headache, snw Sweating, High Blood Pressure. 22:39 The patient complains of pain to the forehead. The patient describes the headache as snw constant, unrelenting. Onset: The symptoms/episode began/occurred suddenly, this morning. Associated signs and symptoms: Pertinent positives: neck pain, vomiting, unable to cool down. Severity of symptoms: At its worst the pain was severe. Headache History: Denies prior headaches. The symptoms are alleviated by nothing. The patient has not experienced similar symptoms in the past. It is unknown whether or not the patient has recently seen a physician. on my arrival to room, pt had vomited x 3. BP 230/149. Historical: - Allergies: 21:18 No Known Allergies; kb3 - Home Meds: 21:18 hydralazine 25 mg Oral tab 1 tab 2 times per day [Active]; labetalol 200 mg Oral tab 1 kb3 tab three times a day [Active]; nifedipine 90 mg Oral TbER 1 tab once daily [Active]; potassium chloride 20 mEq Oral TbER 1 tab once daily [Active]; triamterene-hydrochlorothiazid 37.5-25 mg Oral tab 1 tab once daily [Active]; - Immunization history:: Adult Immunizations up to date, Client reports receiving the 2nd dose of the Covid vaccine, Last tetanus immunization: up to date. - Social history:: Smoking status: Patient denies any tobacco usage or history of. Patient/guardian denies using alcohol, street drugs. ROS: 21:57 Eyes: Negative for injury, pain, redness, and discharge, ENT: Negative for injury, snw pain, and discharge, Neck: Negative for injury, pain, and swelling. 21:57 Constitutional: Positive for crick in left neck, htn, unable to get comfortable, headache. Vomiting x 3 episodes since arrival, c/o inability to cool off. 22:03 Cardiovascular: Negative for chest pain, palpitations, and edema, Respiratory: Negative snw for shortness of breath, cough, wheezing, and pleuritic chest pain. 22:03 Back: Negative for injury and pain, : Negative for injury, bleeding, discharge, and swelling, MS/Extremity: Negative for injury and deformity. 22:03 Abdomen/GI: Positive for nausea and vomiting. 22:03 Skin: Positive for sweating, being hot. 22:03 Neuro: Positive for headache. Exam: 21:57 Respiratory: Lungs have equal breath sounds bilaterally, clear to auscultation and snw percussion. No rales, rhonchi or wheezes noted. No increased work of breathing, no retractions or nasal flaring. Abdomen/GI: Soft, non-tender, with normal bowel sounds. No distension or tympany. No guarding or rebound. No evidence of tenderness throughout. Back: No spinal tenderness. No costovertebral tenderness. Full range of motion. Skin: Warm, dry with normal turgor. Normal color with no rashes, no lesions, and no evidence of cellulitis. MS/ Extremity: Pulses equal, no cyanosis. Neurovascular intact. Full, normal range of motion. Neuro: Awake and alert, GCS 15, oriented to person, place, time, and situation. Cranial nerves II-XII grossly intact. Motor strength 5/5 in all extremities. Sensory grossly intact. Cerebellar exam normal. Normal gait. Psych: Awake, alert, with orientation to person, place and time. Behavior, mood, and affect are within normal limits. 21:57 Constitutional: This is a well developed, well nourished patient who is awake, alert, and in no acute distress. Head/Face: Normocephalic, atraumatic. lipoma to left distal occipital area Eyes: Pupils equal round and reactive to light, extra-ocular motions intact. Lids and lashes normal. Conjunctiva and sclera are non-icteric and not injected. Cornea within normal limits. Periorbital areas with no swelling, redness, or edema. ENT: Nares patent. No nasal discharge, no septal abnormalities noted. Tympanic membranes are normal and external auditory canals are clear. Oropharynx with no redness, swelling, or masses, exudates, or evidence of obstruction, uvula midline. Mucous membranes moist. Neck: Trachea midline, no thyromegaly or masses palpated, and no cervical lymphadenopathy. Supple, full range of motion without nuchal rigidity, or vertebral point tenderness. No Meningismus. Chest/axilla: Normal chest wall appearance and motion. Nontender with no deformity. No lesions are appreciated. 21:57 Cardiovascular: Rate: normal, Rhythm: irregular, Pulses: no pulse deficits are appreciated, Heart sounds: normal, Edema: ankle edema, that is mild, JVD: is noted bilaterally. Vital Signs: 21:13 Pulse 87; Resp 20; Temp 97.5; Pulse Ox 99% ; Weight 129.27 kg; Height 5 ft. 11 in. kb3 (180.34 cm); Pain 5/10; 21:24 BP 193 / 119; kb3 21:36 BP 195 / 140; Pulse 91; Resp 18; Pulse Ox 97% on R/A; tw5 22:27 BP 189 / 109; Pulse 80; Resp 12; Pulse Ox 100% ; tw5 23:36 BP 155 / 89; Pulse 101; Resp 17; Pulse Ox 97% on R/A; tw5 03/14 00:46 BP 169 / 89; Pulse 94; Resp 17 S; Pulse Ox 96% on R/A; bb 03/13 21:13 Body Mass Index 39.75 (129.27 kg, 180.34 cm) kb3 NIH Stroke Scale Scores: 03/13 21:50 NIHSS Score: 0 snw [place] Coma Score: 23:37 Eye Response: spontaneous(4). Verbal Response: oriented(5). Motor Response: obeys snw commands(6). Total: 15. 03/14 00:00 Eye Response: spontaneous(4). Verbal Response: oriented(5). Motor Response: obeys snw commands(6). Total: 15. MDM: 03/13 22:07 Patient medically screened. snw 23:37 Data reviewed: vital signs, nurses notes. Response to treatment: the patient's symptoms snw have mildly improved after treatment. Awaiting: CT scan results, in department for scans. 03/14 00:32 Data interpreted: Pulse oximetry: on room air is 97 %. Interpretation: normal. snw Counseling: I had a detailed discussion with the patient and/or guardian regarding: the historical points, exam findings, and any diagnostic results supporting the discharge/admit diagnosis, the presence of at least one elevated blood pressure reading (>120/80) during this emergency department visit, lab results, radiology results, the need to transfer to another facility, for higher level of care. Physician consultation: Dr Rosa was called at 00:32, was contacted at 00:32, regarding regarding transfer, to [facility]. accepts patient in transfer to Neuro ICU. Special discussion: Pt will likely require transfer to another facility. 03/13 21:38 Order name: Basic Metabolic Panel; Complete Time: 22:25 [facility] 03/13 21:38 Order name: CBC with Diff; Complete Time: 22:02 [facility] 03/13 21:38 Order name: Troponin HS; Complete Time: 22:25 [facility] 03/13 21:38 Order name: XRAY Chest (1 view); Complete Time: :37 [facility] 03/13 22:10 Order name: Magnesium; Complete Time: 22:25 [facility] 03/14 00:24 Order name: SARS RAPID; Complete Time: 01:28 [facility] 03/13 21:43 Order name: CT Head Brain wo Cont [facility] 03/13 21:56 Order name: Head Angio CT [facility] 03/13 21:38 Order name: EKG; Complete Time: 21:39 [facility] 03/13 21:38 Order name: Cardiac monitoring; Complete Time: 21:38 [facility] 03/13 21:38 Order name: EKG - Nurse/Tech; Complete Time: 21:38 [facility] 03/13 21:38 Order name: IV Saline Lock; Complete Time: 21:38 [facility] 03/13 21:38 Order name: Labs collected and sent; Complete Time: 21:38 [facility] 03/13 21:38 Order name: O2 Per Protocol; Complete Time: 21:38 03/13 21:38 Order name: O2 Sat Monitoring; Complete Time: 21:38 [facility] 03/14 00:04 Order name: EKG; Complete Time: 00:24 snw EC:00 Rate is 92 beats/min. Rhythm is irregular. QRS interval is normal. QT interval is snw normal. Clinical impression: Atrial Flutter. Administered Medications: 03/13 22:20 Drug: Valium (diazepam) 1 mg Route: IVP; Site: right antecubital; tw5 23:37 Follow up: Response: No adverse reaction tw5 22:28 Drug: Keppra (levETIRAcetam) 20 mg/kg Route: IV; Rate: calculated rate; Site: right tw5 hand; 22:28 Follow up: only administered 1000 MG per [place] tw5 22:43 Follow up: IV Status: Completed infusion; IV Intake: 100ml bb 22:29 Drug: Cardene (niCARdipine) 5 mg/hr Route: IV; Rate: calculated rate; Site: right tw5 antecubital; 03/14 01:26 Follow up: IV Status: Infusion continued upon transfer 03/13 22:52 Drug: Lasix (furosemide) 20 mg Route: IVP; Site: right hand; tw5 23:37 Follow up: Response: No adverse reaction; Blood pressure is lowered tw5 03/14 00:10 Drug: foLIC Acid 1 mg Route: IVPB; Site: right antecubital; 00:20 Follow up: IV Status: Completed infusion; IV Intake: 50ml 00:22 Drug: Potassium Chloride 20 mEq Route: IV; Rate: calculated rate; Site: right bb antecubital; 01:26 Follow up: IV Status: Infusion continued upon transfer 01:10 Drug: Phenergan (promethazine) 12.5 mg Route: IVP; Site: right antecubital; bb 01:26 Follow up: Response: No adverse reaction bb Disposition: 06:55 Co-signature as Attending Physician, Brock Nguyen MD. [email or web address] Disposition Summary: 03/14/22 00:36 Transfer Ordered Transfer Location: [facility] snw Reason: Higher level of care snw Condition: Stable snw Problem: new snw Symptoms: have improved snw Accepting Physician: Dr. 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 Level of Consciousness (LOC) - 0(Alert) 1b. Level of Consciousness (LOC) (Month \T\ Age) - 0(Both) 1c. LOC Commands (Open \T\ Closes Eyes/Med[employer] Professor) - 0(Both) 2. Best Gaze (Lateral Gaze Paresis) - 0(Normal) 3. Visual Field Loss - 0(No visual loss) 4. Facial Palsy - 0(Normal) 5a. Left Arm: Motor (10-second hold) - 0(No drift) 5b. Right Arm: Motor (10-second hold) - 0(No drift) 6a. Left Leg: Motor (5-second hold - always test supine) - 0(No drift) 6b. Right Leg: Motor (5-second hold - always test supine) - 0(No drift) 7. Limb Ataxia (finger/nose \T\ heel/richards - test with eyes open) - 0(Absent) 8. Sensory Loss (pinprick arms/legs/face) - 0(Normal) 9. Best Language: Aphasia (description/naming/reading) - 0(No aphasia) 10. Dysarthria (speech clarity - read or repeat words) - 0(Normal) 11. Extinction and Inattention (visual/tactile/auditory/spatial/personal) - 0(No abnormality) Initials: snw Signatures: Dispatcher [employer] EDMS [place] Castrejon, JEWEL HOLE DRILLER-C JEWEL HOLE DRILLER-Csnw Coretta Camarena RN RN bb Brock Nguyen MD MD 7 Em Simms tw5 Gini Navarro RN RN kb3 Corrections: (The following items were deleted from the chart) 00:37 08/14 21:57 Constitutional: This is a well developed, well nourished patient snw who is awake, alert, and in no acute distress. Head/Face: Normocephalic, atraumatic. Eyes: Pupils equal round and reactive to light, extra-ocular motions intact. Lids and lashes normal. Conjunctiva and sclera are non-icteric and not injected. Cornea within normal limits. Periorbital areas with no swelling, redness, or edema. ENT: Nares patent. No nasal discharge, no septal abnormalities noted. Tympanic membranes are normal and external auditory canals are clear. Oropharynx with no redness, swelling, or masses, exudates, or evidence of obstruction, uvula midline. Mucous membranes moist. Neck: Trachea midline, no thyromegaly or masses palpated, and no cervical lymphadenopathy. Supple, full range of motion without nuchal rigidity, or vertebral point tenderness. No Meningismus. Chest/axilla: Normal chest wall appearance and motion. Nontender with no deformity. No lesions are appreciated. anthony 03/14 01:27 00:36 Dr. Moe cruz bb
--- NOTE | 2022-03-14 00:37 | ER ---
Nurse's Notes 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 Pt began vomiting approximately 30 minutes ago x3 episodes. Denies CP, SOB, abdominal pain. Coronavirus screen: Vaccine status: Patient reports receiving the 2nd dose of the covid vaccine. Client denies travel out of the [place] in the last 14 days. At this time, the client does not indicate any symptoms associated with coronavirus-19. Ebola Screen: Patient negative for fever greater than or equal to 101.5 degrees Fahrenheit, and additional compatible Ebola Virus Disease symptoms Patient denies exposure to infectious person. Patient denies travel to an Ebola-affected area in the 21 days before illness onset. No symptoms or risks identified at this time. Initial Sepsis Screen: Does the patient meet any 2 criteria? No. Patient's initial sepsis screen is negative. Does the patient have a suspected source of infection? No. Patient's initial sepsis screen is negative. Risk Assessment: Do you want to hurt yourself or someone else? Patient reports no desire to harm self or others. Onset of symptoms was March 12, 2022. 21:13 Method Of Arrival: Ambulatory kb3 21:13 Acuity: BENY 3 kb3 Triage Assessment: 21:18 Headache History: Denies prior headaches. General: Appears distressed, uncomfortable, kb3 Behavior is calm, cooperative. Pain: Complains of pain in head Pain does not radiate. Pain currently is 5 out of 10 on a pain scale. Quality of pain is described as aching, throbbing, Pain began 1 day ago. Is continuous, Also complains of nausea, diaphoresis, Vomiting. Neuro: No deficits noted. Historical: - Allergies: 21:18 No Known Allergies; kb3 - Home Meds: 21:18 hydralazine 25 mg Oral tab 1 tab 2 times per day [Active]; labetalol 200 mg Oral tab 1 kb3 tab three times a day [Active]; nifedipine 90 mg Oral TbER 1 tab once daily [Active]; potassium chloride 20 mEq Oral TbER 1 tab once daily [Active]; triamterene-hydrochlorothiazid 37.5-25 mg Oral tab 1 tab once daily [Active]; - Immunization history:: Adult Immunizations up to date, Client reports receiving the 2nd dose of the Covid vaccine, Last tetanus immunization: up to date. - Social history:: Smoking status: Patient denies any tobacco usage or history of. Patient/guardian denies using alcohol, street drugs. Screenin:36 Abuse screen: Denies threats or abuse. Denies injuries from another. Nutritional tw5 screening: No deficits noted. Tuberculosis screening: No symptoms or risk factors identified. Fall Risk None identified. Assessment: 21:36 General: Reports "I am just so hot in here, and my neck is uncomfortable.". Pain: tw5 Complains of pain in left trapezius and right trapezius Pain currently is 7 out of 10 on a pain scale. Neuro: Level of Consciousness is awake, alert, obeys commands. Respiratory: Airway is patent Trachea midline Respiratory effort is even, unlabored. Derm: Skin is intact, Skin is diaphoretic, Skin is normal. 22:27 Reassessment: Patient appears in no apparent distress at this time. No changes from tw5 previously documented assessment. Patient and/or family updated on plan of care and expected duration. Pain level reassessed. Patient is alert, oriented x 3, equal unlabored respirations, skin warm/dry/pink. 23:36 Reassessment: Patient states symptoms have improved. tw5 08 00:45 Reassessment: Patient is alert, oriented x 3, equal unlabored respirations, skin bb warm/dry/pink. pt resting quietly, awaiting transfer, IV sites intact, patent, with fluids infusing family at bedside. 01:00 Reassessment: pt vomiting Valencia Castrejon BATCH MAKER notified pt medicated see SEP. bb 01:15 Reassessment: EMS at bedside for transfer of pt to [facility] pt is A\\T\\O x 4, IV bb sites intact, patent with fluids infusing. 01:17 Reassessment: report called to Marco CALDERÓN for [facility] neuro ICU. bb Vital Signs: 03/13 21:13 Pulse 87; Resp 20; Temp 97.5; Pulse Ox 99% ; Weight 129.27 kg; Height 5 ft. 11 in. kb3 (180.34 cm); Pain 5/10; 21:24 BP 193 / 119; kb3 21:36 BP 195 / 140; Pulse 91; Resp 18; Pulse Ox 97% on R/A; tw5 22:27 BP 189 / 109; Pulse 80; Resp 12; Pulse Ox 100% ; tw5 23:36 BP 155 / 89; Pulse 101; Resp 17; Pulse Ox 97% on R/A; tw5 03/14 00:46 BP 169 / 89; Pulse 94; Resp 17 S; Pulse Ox 96% on R/A; bb 03/13 21:13 Body Mass Index 39.75 (129.27 kg, 180.34 cm) kb3 [place] Coma Score: 03/13 23:37 Eye Response: spontaneous(4). Verbal Response: oriented(5). Motor Response: obeys snw commands(6). Total: 15. 03/14 00:00 Eye Response: spontaneous(4). Verbal Response: oriented(5). Motor Response: obeys snw commands(6). Total: 15. NIH Stroke Scale Scores: 03/13 21:50 NIHSS Score: 0 snw ED Course: 20:41 Patient arrived in ED. rg4 21:18 Triage completed. kb3 21:18 Arm band placed on right wrist. kb3 21:36 Awaiting lab results. tw5 21:36 Patient has correct armband on for positive identification. Bed in low position. Call tw5 light in reach. Side rails up X 1. Client placed on continuous cardiac and pulse oximetry monitoring. NIBP monitoring applied. Door closed. Noise minimized. Moved to private room. Warm blanket given. Verbal reassurance given. 21:36 Initial lab(s) drawn, by me, sent to lab. EKG done. Inserted saline lock: 20 gauge in tw5 right antecubital area, using aseptic technique. Blood collected. 21:42 Valencia Cast[facility]C [facility]. snw 21:42 Brock Nguyen MD is Attending Physician. snw 21:46 Wood, Em is Primary Nurse. tw5 21:58 Basic Metabolic Panel Sent. tw5 21:58 CBC with Diff Sent. tw5 21:58 Troponin HS Sent. tw5 22:13 Magnesium Sent. tw5 22:13 Basic Metabolic Panel Sent. tw5 22:13 Troponin HS Sent. tw5 22:20 XRAY Chest (1 view) In Process Unspecified. EDMS 22:27 Inserted saline lock: 20 gauge in right hand, using aseptic technique. tw5 23:25 CT Head Brain wo Cont In Process Unspecified. EDMS 23:[address] In Process Unspecified. EDMS 03/14 00:[address] [facility], spoke with María Willett. wm 00:40 Pt accepted for transfer by Dr. Dagoberto Rosa per María Willett. wm 00:47 No provider procedures requiring assistance completed. Patient transferred, IV remains bb in place. Administered Medications: 03/13 22:20 Drug: Valium (diazepam) 1 mg Route: IVP; Site: right antecubital; tw5 23:37 Follow up: Response: No adverse reaction tw5 22:28 Drug: Keppra (levETIRAcetam) 20 mg/kg Route: IV; Rate: calculated rate; Site: right tw5 hand; 22:28 Follow up: only administered 1000 MG per Valencia tw5 22:43 Follow up: IV Status: Completed infusion; IV Intake: 100ml 22:29 Drug: Cardene (niCARdipine) 5 mg/hr Route: IV; Rate: calculated rate; Site: right tw5 antecubital; 03/14 01:26 Follow up: IV Status: Infusion continued upon transfer 03/13 22:52 Drug: Lasix (furosemide) 20 mg Route: IVP; Site: right hand; tw5 23:37 Follow up: Response: No adverse reaction; Blood pressure is lowered tw 03/14 00:10 Drug: foLIC Acid 1 mg Route: IVPB; Site: right antecubital; bb 00:20 Follow up: IV Status: Completed infusion; IV Intake: 50ml bb 00:22 Drug: Potassium Chloride 20 mEq Route: IV; Rate: calculated rate; Site: right antecubital; 01:26 Follow up: IV Status: Infusion continued upon transfer bb 01:10 Drug: Phenergan (promethazine) 12.5 mg Route: IVP; Site: right antecubital; bb 01:26 Follow up: Response: No adverse reaction bb Medication: 03/13 21:36 VIS not applicable for this client. tw5 Intake: 22:43 IV: 100ml; Total: 100ml. bb 03/14 00:20 IV: 50ml; Total: 150ml. bb Outcome: 00:36 ER care complete, transfer ordered by . snw 00:47 Instructed on the need for transfer. bb 01:25 Transferred by ground EMS to [facility], Transfer form completed. bb X-rays sent w/ patient. 01:25 Condition: stable 01:27 Patient left the ED. bb NIH Stroke Scale - NIH Stroke Score Date: 03/13/2022 Time: 21:50 Total Score = 0 1a. Level of Consciousness (LOC) - 0(Alert) 1b. Level of Consciousness (LOC) (Month \\T\\ Age) - 0(Both) 1c. LOC Commands (Open \\T\\ Closes Eyes/Park Activities Coordinator) - 0(Both) 2. Best Gaze (Lateral Gaze Paresis) - 0(Normal) 3. Visual Field Loss - 0(No visual loss) 4. Facial Palsy - 0(Normal) 5a. Left Arm: Motor (10-second hold) - 0(No drift) 5b. Right Arm: Motor (10-second hold) - 0(No drift) 6a. Left Leg: Motor (5-second hold - always test supine) - 0(No drift) 6b. Right Leg: Motor (5-second hold - always test supine) - 0(No drift) 7. Limb Ataxia (finger/nose \\T\\ heel/richards - test with eyes open) - 0(Absent) 8. Sensory Loss (pinprick arms/legs/face) - 0(Normal) 9. Best Language: Aphasia (description/naming/reading) - 0(No aphasia) 10. Dysarthria (speech clarity - read or repeat words) - 0(Normal) 11. Extinction and Inattention (visual/tactile/auditory/spatial/personal) - 0(No abnormality) Initials: snw Signatures: Dispatcher [employer] EDMS Valencia Castrejon, RAHUL-C BATCH MAKER-Csnw Coretta Camarena RN RN Radha May rg4 Destiney Bauer Tiffany tw5 Gini Navarro, RN RN kb3
[2022-03-14] MEDS ORDERED: PROMETHAZINE INJ 25 MG/ML AMP ONE (01:11)
[2022-03-14 01:17] LABS: SARS-CoV-2 Antigen Rapid Res Negative (Negative)
[2022-03-14 04:28] VITALS: TEMP 97.5
[2022-03-14 04:50] VITALS: BP 169/89; O2SAT 96
--- NOTE | 2022-03-14 13:02 | RAD REPORT ---
EXAM DESCRIPTION: ADDENDUM #1 THIS REPORT CONTAINS FINDINGS THAT MAY BE CRITICAL TO PATIENT CARE: The findings were verbally discus sed via telephone conference with Valencia Castrejon NP, on 03/13/2022 11:54 PM CDT. The results were ackn owledged and understood. Electronically signed by: Rikki Damon MD 03/13/2022 11:55 PM CDT End of Addendum EXAM DESCRIPTION: CT Head Without Intravenous Contrast CLINICAL HISTORY: Headache, sudden, severe TECHNIQUE: Axial computed tomography images of the head/brain without intravenous contrast. Sagitt al and coronal reformatted images were created and reviewed. This CT exam was performed using one o r more of the following dose reduction techniques: automated exposure control, adjustment of the mA and/or kV according to patient size, and/or use of iterative reconstruction technique. COMPARISON: No relevant prior studies available. FINDINGS: Brain: Geographic area of low density involving the left cerebellum. Supratentorial okeefe -white matter differentiation is within normal limits. No acute hemorrhage. Ventricles: Unremarkable. No ventriculomegaly. Bones/joints: Unremarkable. No acute fracture. Soft tissues: Unremarkable. Sinuses: Unremarkable as visualized. No acute sinusitis. Mastoid air cells: Unremarkable as visualized. No mastoid effusion. IMPRESSION: Findings suggestive of left cerebellar infarction, which may be acute to subacute. Electronically signed by: Rikki Damon MD 03/13/2022 11:46 PM CDT Due to temporary technical issues with the PACS/Fluency reporting system, reports are being signed by the in house radiologists without review as a courtesy to insure prompt reporting. The interpreting radiologist is fully responsible for the content of the report.
--- NOTE | 2022-03-14 14:20 | RAD REPORT ---
EXAM DESCRIPTION: Head angio CLINICAL HISTORY: 56-year-old male with pain and hypertensive emergency. COMPARISON: Noncontrast CT brain. TECHNIQUE: CT angiography of the head and neck following dynamic bolus of intravenous contrast. MIP reformatted reconstructions were created. This exam was performed according to our departmental dose optimization program which includes use of automated exposure control, adjustment of the mA and/or kV according to patient size and/or use of iterative reconstruction technique. FINDINGS: In comparison to the previous examination, there is reidentification of hypoattenuation wi thin the LEFT cerebellum. There is associated mass effect on the fourth ventricle and LEFT perimesenc ephalic cistern compatible with edema raising the concern for acute to subacute infarction. CTA brain: Patent flow opacification through anterior circulation (bilateral petrous/cavernous/supraclinoid inte rnal carotid arteries, anterior and middle cerebral arteries), posterior circulation (vertebral-basil ar, superior cerebellar, and posterior cerebral arteries), and distal intracranial vasculature. Poor visualization of the superior cerebellar arteries, anterior inferior cerebellar arteries and RIG HT posterior inferior cerebellar artery, a finding which may be secondary to poor contrast opacificat ion, versus small size. Patent flow opacification through an incomplete [id number] with a patent anterior communicating artery and bilateral absent posterior communicating arteries. Normal superficial and deep intracranial venous drainage. No evidence of occlusive thrombus, dissection, or vascular malformation. Complete evaluation including CT angiography of the neck is recommended to exclude the possibility of proximal vertebral artery dissection or occlusion. There is filling of the V4 and visualized V3 LEFT vertebral artery, however this finding may be seen with reflux of contrast from the intracranial cir culation. Incidentally noted LEFT suboccipital subcutaneous lipoma. IMPRESSION: 1. Patent enhancement of the intracranial circulation. 2. Patent enhancement of the cervical vasculature without specific findings to suggest etiology of the patient's pain. 3. LEFT cerebellar edema with mass effect on the fourth ventricle and perimesencephalic cistern com patible with edema raising the concern for acute to subacute infarction. Further evaluation with MRI pre and postcontrast is recommended. Differential considerations may include cerebellar mass. 4. Poor visualization of the superior cerebellar arteries, anterior inferior cerebellar arteries an d RIGHT posterior inferior cerebellar artery, a finding which may be secondary to poor contrast opaci fication, versus small size. 5. There is filling of the V4 and visualized V3 LEFT vertebral artery, however this finding may be seen with reflux of contrast from the intracranial circulation. Follow-up evaluation with CT angiogra phy of the neck is recommended to exclude the possibility of proximal pathology. Electronically signed by: Pao Mcdonald MD 03/14/2022 12:05 AM CDT Due to temporary technical issues with the PACS/Fluency reporting system, reports are being signed by the in house radiologists without review as a courtesy to insure prompt reporting. The interpreting radiologist is fully responsible for the content of the report.
--- NOTE | 2022-03-15 08:17 | EKG ---
Test Date: 2022-03-13 Test Time: 21:29:59 [employer] Mdm Developer: ARIK MEASUREMENT RESULTS: Intervals: Rate: 92 LA: QRSD: 100 QT: 358 QTc: 442 [place]: P: LA: QRS: -48 T: 116 INTERPRETIVE STATEMENTS: Atrial flutter with variable AV block with premature ventricular or aberrantly conducted complexes Left anterior fascicular block ST & T wave abnormality, consider lateral ischemia Abnormal ECG No previous ECG available for comparison Electronically Signed On 03-15-22 08:11:38 CDT by Lc Bennett
== END 2022-03-14 01:27 | disposition short-term general hospital (02) ==
LOC: ER 20:41
DX: I63.542 Cerebral infarction due to unspecified occlusion or stenosis of left cerebellar artery (principal); I16.1 Hypertensive emergency; I48.92 Unspecified atrial flutter; R11.2 Nausea with vomiting, unspecified; R29.700 NIHSS score 0; Z20.822 Contact with and (suspected) exposure to COVID-19
CPT/HCPCS: 93005; 85025; 80048; 36415; 83735; 84484; 70450; 70496; 71045; 87811; Q9967; J1940; J2550; J3480; J3360; J1953; 99285

== ENCOUNTER → 2023-10-08 | Emergency (ER) | payer BC, OTHER ==
[~2023-10-08] MED LIST: ACETAMINOPHEN 500 MG TAB ONE; HYDROCODONE/CHLORPHEN 5 ML/OSYR ONE; dexAMETHasone 10 MG/ML VIAL ONE
--- NOTE | 2023-10-08 17:58 | RAD REPORT ---
EXAM DESCRIPTION: Amanda Alvarado (2 Views)10/08/2023 5:48 pm CLINICAL HISTORY: Cough COMPARISON: 2021 FINDINGS: The lungs appear clear of acute infiltrate. The heart is mildly enlarged IMPRESSION: No acute abnormalities displayed
[2023-10-08 18:27] LABS: SARS-CoV-2 Antigen Rapid Res Negative (Negative)
--- NOTE | 2023-10-08 18:36 | EDPHYS ---
Physician Documentation [facility] Name: Lencho Menon Age: 58 yrs Sex: Male : 1965 Arrival Date: 10/08/2023 Time: 17:17 Bed 13 Private MD: ED Physician Akira Bender HPI: 10/07 17:26 This 58 yrs old Black Male presents to ER via Unassigned with complaints of Sinus sb4 Congestion, Cough. 17:26 The patient or guardian reports cough, with productive sputum, clear. Onset: The sb4 symptoms/episode began/occurred 1 week(s) ago. Associated signs and symptoms: Pertinent negatives: chest pain, diarrhea, ear ache, fever, nausea, rhinorrhea, sore throat, vomiting. The patient has not experienced similar symptoms in the past. The patient has not recently seen a physician. Historical: - Allergies: 17:29 No Known Allergies; as6 - PMHx: 17:29 Hypertension; Cerebrovascular accident; as6 - Immunization history:: Adult Immunizations up to date. - Social history:: Smoking status: Patient denies any tobacco usage or history of. ROS: 17:26 Abdomen/GI: Negative for abdominal pain, nausea, vomiting, diarrhea, and constipation, sb4 17:26 Constitutional: Positive for malaise, 17:26 ENT: Positive for sinus congestion, 17:26 Respiratory: Positive for cough, with clear sputum, 17:26 All other systems are negative, Exam: 17:26 Constitutional: This is a well developed, well nourished patient who is awake, alert, sb4 and in no acute distress. Head/Face: Normocephalic, atraumatic. Eyes: Extra-ocular motions intact. Periorbital areas with no swelling, redness, or edema. ENT: Mucous membranes moist. Cardiovascular: Regular rate and rhythm with a normal S1 and S2. Respiratory: Lungs have equal breath sounds bilaterally, clear to auscultation and percussion. No rales, rhonchi or wheezes noted. No increased work of breathing, no retractions or nasal flaring. Abdomen/GI: Soft, non-tender, no distension. Skin: Warm, dry with normal turgor. Normal color with no rashes, no lesions, and no evidence of cellulitis. MS/ Extremity: Pulses equal, no cyanosis. Neurovascular intact. Full, normal range of motion. Neuro: Awake and alert, GCS 15, oriented to person, place, time, and situation. Motor strength 5/5 in all extremities. Sensory grossly intact. Vital Signs: 17:28 BP 173 / 104; Pulse 104; Resp 20 S; Temp 98.4(TE); Pulse Ox 98% on R/A; Weight 131.54 as6 kg (R); Height 5 ft. 11 in. (R); Pain 0/10; 19:19 BP 168 / 99; Pulse 87; Resp 18; Temp 98; Pulse Ox 99% on R/A; ph 17:28 Body Mass Index 40.45 (131.54 kg, 180.34 cm) as6 17:28 Pain Scale: Adult as6 MDM: 17:22 Patient medically screened. sb4 17:26 Differential Diagnosis: Bronchitis Influenza Upper Respiratory Infection Sinusitis sb4 Viral Syndrome Pneumonia. 17:45 Independent interpretation of the following test(s) in the Emergency Department X-Ray: sb4 My interpretation is my interpretation of the chest xray images are cardiomegaly with vague bibasilar haziness. 18:35 Data reviewed: vital signs, nurses notes, lab test result(s), radiologic studies, and sb4 as a result, I will discharge patient. Care significantly affected by the following chronic conditions: Hypertension. Counseling: I had a detailed discussion with the patient and/or guardian regarding the historical points, exam findings, and any diagnostic results supporting the discharge/admit diagnosis, lab results, radiology results, to return to the emergency department if symptoms worsen or persist or if there are any questions or concerns that arise at home. 10/07 17:25 Order name: SARS RAPID; Complete Time: 18:31 sb4 10/07 17:25 Order name: Flu; Complete Time: 18:31 sb4 10/07 17:25 Order name: Chest Pa And Lat (2 Views) XRAY; Complete Time: 18:06 sb4 Administered Medications: 18:55 Drug: Acetaminophen PO 1000 mg PO once Route: PO; ph 19:19 Follow up: Response: No adverse reaction ph 18:55 Drug: Tussionex Pennkinetic ER PO Suspension 5 ml PO once Route: PO; ph 19:19 Follow up: Response: No adverse reaction ph 18:56 Not Given (Other Intervention Used): [id number] mg PO once ph 19:19 Drug: Dexamethasone IM 10 mg IM once Route: IM; Site: right deltoid; ph 19:19 Follow up: Response: No adverse reaction ph Disposition Summary: 10/08/23 18:35 Discharge Ordered Notes: Location: Home sb4 Problem: an ongoing problem sb4 Symptoms: are unchanged sb4 Condition: Stable sb4 Diagnosis - Influenza due to identified novel influenza A virus with other respiratory sb4 manifestations Followup: sb4 - With: Emergency Department - When: As needed - Reason: Trouble breathing, Worsening of condition Discharge Instructions: - Discharge Summary Sheet sb4 - Antibiotic Resistance sb4 - Influenza, Adult sb4 Forms: - Thank You Letter sb4 - Patient Portal Instructions sb4 - Leadership Thank You Letter sb4 Prescriptions: - Prednisone 20 mg Oral Tablet - take 1 tablet ORAL route every 12 hours for 5 days; 10 tablet; Refills: 0, sb4 Product Selection Permitted - Guaifenesin AC 10-100 mg/5 mL Oral Liquid - take 10 milliliters ORAL route every 4 hours As needed; 240 milliliter; sb4 Refills: 0, Product Selection Permitted Signatures: Dispatcher [employer] Lynsey Matt, RN RN Elliott Ward RN RN as6 Mandy Villatoro, RYAN PAMignon sb4
--- NOTE | 2023-10-08 18:36 | ER ---
Nurse's Notes [facility] Name: Lencho Menon Age: 58 yrs Sex: Male : 1965 Arrival Date: 10/08/2023 Time: 17:17 Bed 13 Private MD: Diagnosis: Influenza due to identified novel influenza A virus with other respiratory manifestations Presentation: 10/07 17:29 Chief complaint: Patient states: cough, runny nose, congestion x1 week. Coronavirus as6 screen: At this time, the client does not indicate any symptoms associated with coronavirus-19. Ebola Screen: No symptoms or risks identified at this time. Initial Sepsis Screen: Does the patient meet any 2 criteria? No. Patient's initial sepsis screen is negative. Does the patient have a suspected source of infection? No. Patient's initial sepsis screen is negative. Risk Assessment: Do you want to hurt yourself or someone else? Patient reports no desire to harm self or others. Onset of symptoms was October 01, 2023. 17:29 Acuity: BENY 4 as6 17:29 Method Of Arrival: Ambulatory as6 Historical: - Allergies: 17:29 No Known Allergies; as6 - PMHx: 17:29 Hypertension; Cerebrovascular accident; as6 - Immunization history:: Adult Immunizations up to date. - Social history:: Smoking status: Patient denies any tobacco usage or history of. Screenin:07 [facility] ED Fall Risk Assessment (Adult) History of falling in the last 3 months, ph including since admission No falls in past 3 months (0 pts) Confusion or Disorientation No (0 pts) Intoxicated or Sedated No (0 pts) Impaired Gait No (0 pts) Mobility Assist Device Used No (0 pt) Altered Elimination No (0 pt) Score/Fall Risk Level 0 - 2 = Low Risk Oriented to surroundings, Maintained a safe environment, Provided non-skid footwear, Hourly rounding (assess needs \T\ fall precautionary measures) done. Abuse screen: Denies threats or abuse. Denies injuries from another. Nutritional screening: No deficits noted. Tuberculosis screening: No symptoms or risk factors identified. Assessment: 18:06 General: Appears in no apparent distress. Behavior is calm, cooperative, Denies fever. ph Pain: Denies pain. Neuro: Level of Consciousness is awake, alert, obeys commands, Oriented to person, place, time, situation. Respiratory: Reports cough that is. EENT: Reports nasal congestion nasal discharge that is watery. Derm: Skin is pink, warm \T\ dry. Vital Signs: 17:28 BP 173 / 104; Pulse 104; Resp 20 S; Temp 98.4(TE); Pulse Ox 98% on R/A; Weight 131.54 as6 kg (R); Height 5 ft. 11 in. (R); Pain 0/10; 19:19 BP 168 / 99; Pulse 87; Resp 18; Temp 98; Pulse Ox 99% on R/A; ph 17:28 Body Mass Index 40.45 (131.54 kg, 180.34 cm) as6 17:28 Pain Scale: Adult as6 ED Course: 17:19 Patient arrived in ED. rg4 17:20 Mandy Villatoro PA-C is PHCP. sb4 17:20 Akira Bender MD is Attending Physician. sb4 17:28 Arm band placed on Patient placed in an exam room, on a stretcher, on pulse oximetry. as6 17:30 Triage completed. as6 17:31 Lynsey Boyer, RN is Primary Nurse. ph 17:49 Chest Pa And Lat (2 Views) XRAY In Process Unspecified. EDMS 18:06 Flu Sent. ph 18:06 SARS RAPID Sent. ph 18:07 Patient has correct armband on for positive identification. Bed in low position. Call ph light in reach. 18:07 No provider procedures requiring assistance completed. COVID swab sent to lab. Flu ph and/or RSV swab sent to lab. Patient did not have IV access during this emergency room visit. Administered Medications: 18:55 Drug: Acetaminophen PO 1000 mg PO once Route: PO; ph 19:19 Follow up: Response: No adverse reaction ph 18:55 Drug: Tussionex Pennkinetic ER PO Suspension 5 ml PO once Route: PO; ph 19:19 Follow up: Response: No adverse reaction ph 18:56 Not Given (Other Intervention Used): [id number] mg PO once ph 19:19 Drug: Dexamethasone IM 10 mg IM once Route: IM; Site: right deltoid; ph 19:19 Follow up: Response: No adverse reaction ph Medication: 18:07 VIS not applicable for this client. ph Outcome: 18:35 Discharge ordered by MD. sb4 19:20 Discharged to home ambulatory, 19:20 Condition: good 19:20 Discharge instructions given to patient, Instructed on discharge instructions, follow up and referral plans. medication usage, Demonstrated understanding of instructions, follow-up care, medications, Prescriptions given X 2, 19:20 Patient left the ED. ph Signatures: Dispatcher [employer] EDLynsey Nicole RN RN ph Garcia, Rubi rg4 Elliott Maher RN RN as6 Mandy Villatoro, PAMignon PAMignon sb4
[2023-10-08 19:35] VITALS: BP 168/99; TEMP 98; O2SAT 99
== END ==
LOC: ER 17:17
DX: J10.1 Influenza due to other identified influenza virus with other respiratory manifestations (principal); Z11.52 Encounter for screening for COVID-19; I10 Essential (primary) hypertension; Z86.73 Personal history of transient ischemic attack (TIA), and cerebral infarction without residual deficits
CPT/HCPCS: 36415; 87804 ×2; 71046; 87811; J1100; 96372; 99284

== ENCOUNTER 2023-10-28 15:26 | Emergency (ER) | payer OTHER ==
[2023-10-28] MEDS ORDERED: CEFTRIAXONE 1000 MG/VIAL ONE (15:55)
--- NOTE | 2023-10-28 15:55 | EDPHYS ---
Physician Documentation [facility] Name: Lencho Menon Age: 58 yrs Sex: Male : 1965 Arrival Date: 10/28/2023 Time: 15:26 Bed IW2 Private MD: ED Physician Torres Chandra HPI: 10/28 09:59 This 58 yrs old Black Male presents to ER via Ambulatory with complaints of flu like sb4 symptoms. 09:59 Patient has been feeling ill for about a month now. He was diagnosed with the flu 20 sb4 days ago by me, placed on 5-day course of steroids. States that he initially got better but then got worse. States that he is coughing up green-colored phlegm and has a lot of sinus congestion. States that he is miserable and [id number] medications are not help. Historical: - Allergies: 10/27 15:51 No Known Allergies; as6 - PMHx: 15:51 Cerebrovascular accident; Hypertension; as6 - PSHx: 15:51 brain; as6 - Immunization history:: Adult Immunizations up to date. - Social history:: Smoking status: Patient denies any tobacco usage or history of. ROS: 10/28 09:59 Constitutional: Negative for fever, chills, and weight loss, sb4 ENT: Positive for sinus congestion, Respiratory: Positive for cough, with green sputum, All other systems are negative, Exam: 09:59 Constitutional: This is a well developed, well nourished patient who is awake, alert, sb4 and in no acute distress. Head/Face: Normocephalic, atraumatic. Eyes: Extra-ocular motions intact. Periorbital areas with no swelling, redness, or edema. ENT: Mucous membranes moist. Cardiovascular: Regular rate and rhythm with a normal S1 and S2. Respiratory: Lungs have equal breath sounds bilaterally, clear to auscultation and percussion. No rales, rhonchi or wheezes noted. No increased work of breathing, no retractions or nasal flaring. Abdomen/GI: Soft, non-tender, no distension. Skin: Warm, dry with normal turgor. Normal color with no rashes, no lesions, and no evidence of cellulitis. MS/ Extremity: Pulses equal, no cyanosis. Neurovascular intact. Full, normal range of motion. Neuro: Awake and alert, GCS 15, oriented to person, place, time, and situation. Motor strength 5/5 in all extremities. Sensory grossly intact. Vital Signs: 10/27 15:50 BP 128 / 73; Pulse 95; Resp 18 S; Temp 97.5(O); Pulse Ox 98% on R/A; as6 15:53 Weight 131.54 kg (R); Height 5 ft. 11 in. (R); Pain 0/10; as6 15:53 Body Mass Index 40.45 (131.54 kg, 180.34 cm) as6 15:53 Pain Scale: Adult as6 MDM: 15:53 Patient medically screened. sb4 10/28 09:59 Differential diagnosis: viral Infection, bacterial infection, URI. Data reviewed: vital sb4 signs, nurses notes, and as a result, I will discharge patient. Counseling: I had a detailed discussion with the patient and/or guardian regarding the historical points, exam findings, and any diagnostic results supporting the discharge/admit diagnosis, the need for outpatient follow up, for definitive care, to return to the emergency department if symptoms worsen or persist or if there are any questions or concerns that arise at home. Administered Medications: 10/27 16:00 Drug: Rocephin (cefTRIAXone) IM 1 grams IM once Route: IM; Site: right ventrogluteal; as6 16:01 Follow up: Response: Medication administered at discharge. as6 Disposition Summary: 10/28/23 15:54 Discharge Ordered Notes: Location: Home sb4 Problem: an ongoing problem sb4 Symptoms: have improved sb4 Condition: Stable sb4 Diagnosis - Acute upper respiratory infection, unspecified sb4 Followup: sb4 - With: Emergency Department - When: As needed - Reason: Trouble breathing, Worsening of condition Discharge Instructions: - Discharge Summary Sheet sb4 - Upper Respiratory Infection, Adult, [id number] sb4 Forms: - Thank You Letter sb4 - Antibiotic Education sb4 - Patient Portal Instructions sb4 - Leadership Thank You Letter sb4 Prescriptions: - albuterol sulfate 90 mcg/actuation Inhalation HFA Aerosol Inhaler - inhale 2 inhalation INHALATION route every 4 to 6 hours as needed for sb4 bronchospasm; administer via ventilator; 1 Applicator; Refills: 0, Product Selection Permitted - Augmentin 875-125 mg Oral Tablet - take 1 tablet ORAL route every 12 hours for 10 days; 20 tablet; Refills: 0, sb4 Product Selection Permitted Addendum: 10/30/2023 10:08 I was immediately available on-site in the Emergency Department for consultation in the m s3 care of the patient. Signatures: Torres Chandra DO DO ms3 Elliott Maher, RN RN as6 Mandy Villatoro, RYAN PAMignon sb4
--- NOTE | 2023-10-28 15:55 | ER ---
Nurse's Notes [facility] Name: Lencho Menon Age: 58 yrs Sex: Male : 1965 Arrival Date: 10/28/2023 Time: 15:26 Bed IW2 Private MD: Diagnosis: Acute upper respiratory infection, unspecified Presentation: 10/27 15:50 Chief complaint: Patient states: pt was dx with flu 2 weeks ago and symptoms aren't as6 getting better. Coronavirus screen: At this time, the client does not indicate any symptoms associated with coronavirus-19. Ebola Screen: No symptoms or risks identified at this time. Initial Sepsis Screen: Does the patient meet any 2 criteria? No. Patient's initial sepsis screen is negative. Does the patient have a suspected source of infection? No. Patient's initial sepsis screen is negative. Risk Assessment: Do you want to hurt yourself or someone else? Patient reports no desire to harm self or others. Onset of symptoms was October 08, 2023. 15:50 Method Of Arrival: Ambulatory as6 15:50 Acuity: BENY 4 as6 Triage Assessment: 15:53 General: Appears in no apparent distress. Behavior is calm, cooperative, Reports as6 feeling ill for. Pain: Complains of pain in generalized. EENT: Reports nasal congestion. Historical: - Allergies: 15:51 No Known Allergies; as6 - PMHx: 15:51 Cerebrovascular accident; Hypertension; as6 - PSHx: 15:51 brain; as6 - Immunization history:: Adult Immunizations up to date. - Social history:: Smoking status: Patient denies any tobacco usage or history of. Screenin:00 [facility] ED Fall Risk Assessment (Adult) History of falling in the last 3 months, as6 including since admission No falls in past 3 months (0 pts) Confusion or Disorientation No (0 pts) Intoxicated or Sedated No (0 pts) Impaired Gait No (0 pts) Mobility Assist Device Used No (0 pt) Altered Elimination No (0 pt) Score/Fall Risk Level 0 - 2 = Low Risk Oriented to surroundings, Maintained a safe environment, Educated pt \T\ family on fall prevention, incl call for assistance when getting out of bed, Hourly rounding (assess needs \T\ fall precautionary measures) done. Abuse screen: Denies threats or abuse. Denies injuries from another. Nutritional screening: No deficits noted. Tuberculosis screening: No symptoms or risk factors identified. Vital Signs: 15:50 BP 128 / 73; Pulse 95; Resp 18 S; Temp 97.5(O); Pulse Ox 98% on R/A; as6 15:53 Weight 131.54 kg (R); Height 5 ft. 11 in. (R); Pain 0/10; as6 15:53 Body Mass Index 40.45 (131.54 kg, 180.34 cm) as6 15:53 Pain Scale: Adult as6 ED Course: 15:30 Patient arrived in ED. ra3 15:44 [facility]. sb4 15:44 Torres Chandra DO is Attending Physician. sb4 15:51 Triage completed. as6 15:51 Arm band placed on. as6 16:00 Patient has correct armband on for positive identification. Provided Education on: abx as6 teaching. 16:00 No provider procedures requiring assistance completed. Patient did not have IV access as6 during this emergency room visit. Administered Medications: 16:00 Drug: Rocephin (cefTRIAXone) IM 1 grams IM once Route: IM; Site: right ventrogluteal; as6 16:01 Follow up: Response: Medication administered at discharge. as6 Medication: 16:01 VIS not applicable for this client. as6 Outcome: 15:54 Discharge ordered by MD. sb4 16:00 Discharged to home ambulatory, with significant other, as6 16:00 Condition: stable 16:00 Discharge instructions given to patient, Instructed on discharge instructions, follow up and referral plans. medication usage, Demonstrated understanding of instructions, follow-up care, medications, Prescriptions given X 1, 16:01 Patient left the ED. as6 16:53 Patient left the ED. as6 Signatures: Elliott Maher RN RN as6 Mandy Villatoro PA-C PA-C sb4 Debbi Verdugo ra3
[2023-10-28] MEDS ORDERED: LIDOCAINE 1% MPF 2 ML AMPULE ONE (15:56)
[2023-10-28 16:24] VITALS: BP 128/73; TEMP 97.5; O2SAT 98
== END 2023-10-28 16:53 | disposition home or self-care (01) ==
LOC: ER 15:26
DX: J06.9 Acute upper respiratory infection, unspecified (principal); I10 Essential (primary) hypertension; Z86.73 Personal history of transient ischemic attack (TIA), and cerebral infarction without residual deficits
CPT/HCPCS: 96372; 99284; J0696